=== PATIENT | female | born 1970 | race Caucasian/White ===

== ENCOUNTER 2024-12-28 12:57 | Outpatient (AMB) | payer BC, SELFPAY ==
--- NOTE | 2024-12-28 13:07 | A.PHYSOV_ITS ---
Vital Signs 12/28/24 13:08 Height 5 ft 9 in Weight 165 lb BMI 24.4 Intake Visit Reasons: KNEE + HIP PAIN Intake Note: Patient is q 54 year old female in office for bilateral hip and bilateral knee pain. No xrays done Allergies amoxicillin Allergy (Unknown, Verified 12/28/24 13:06) Unknown HPI Comments Details: History of Present Illness The patient is a 54-year-old female presenting with bilateral hip pain and groin pain. The pain radiates to both legs and is exacerbated by transitioning from sitting to standing positions. She reports difficulty sleeping on her sides due to the pain. The patient has a history of receiving bilateral greater trochanteric bursa injections, which provided excellent relief. However, the pain has returned and has been persistent for the past four to five months. She uses ibuprofen as needed and performs home exercises to manage the pain. The patient also reports low back pain, which she attributes to being on her feet frequently. She has not had any recent imaging studies, such as x-rays or MRIs, to evaluate her back pain. Pain Description - Onset: Long-standing pain exacerbated by sitting to standing transitions - Quality: Radiating pain to both legs - Location: Bilateral hips and groin - Exacerbating factors: Transitioning from sitting to standing, sleeping on sides - Relieving factors: Ibuprofen, home exercises Results [facility] Surgical History History of hernia repair (Unknown) Social History Alcohol intake: never Patient Tobacco Use Status: Current everyday Tobacco user Use of substances other than those prescribed or required for medical reasons: No Review of Systems Narrative Review of Systems - Musculoskeletal: Reports bilateral hip pain, groin pain, and low back pain Denies change in bowel bladder habits, denies fever or chills, denies uncontrolled depression or suicidal ideation Physical Exam Exam Exam: Physical Exam - Musculoskeletal: Palpation of hip area conducted, patient reported tenderness. Gait without antalgia. Lumbar extension was restricted. Dural tension signs were negative. She was able to perform heel walk and toe walk. Tenderness with palpation over greater trochanters bilaterally. Neurological examination was nonfocal. Patient demonstrated an upper motor neuron signs. Tenderness with palpation over SI sulci. SI provocative maneuvers were negative. Vital Signs: BMI result Body Mass Index 24.4 Office Procedures AMB Hip Injection AMB Hip Injection Procedure Details: Patient was placed in a lateral recumbent position with the right side up. Point of maximum tenderness over greater trochanter was located and marked. Skin was cleansed with alcohol. 1.5 in 22 gauge hypodermic needle was introduced percutaneously and advanced toward the greater trochanter. Once in place total volume of 5 cc containing 40 mg of triamcinolone and 2% lidocaine was injected after negative aspiration for blood and without resistance. The identical procedure was repeated on the opposite side. Patient tolerated procedure very well without complications.2 Hip (Bursa) Injection - : Bilateral All charges added?: Procedure code (CPT) selection complete Office Meds Kenalog 40 mg/mL suspension for injection Performing Provider: Lawson Bliss DO Performing Location: [facility] Administered by: Lawson Bliss DO on 12/28/24 13:29 Dose Route Admin Location Dispensed Lot Number Expiration Date 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 Business Mail Entry Clerk 160 mg intrabursal 8 mL [id number] Total Dispensed Waste 8 mL 0 % Assessment & Plan Assessment & Plan (1) Trochanteric bursitis of both hips: Code(s): M70.61 - Trochanteric bursitis, right hip; M70.62 - Trochanteric bursitis, left hip Category: Medical (2) Hip pain, bilateral: Code(s): M25.551 - Pain in right hip; M25.552 - Pain in left hip Category: Medical (3) Spinal stenosis, lumbar region with neurogenic claudication: Code(s): M48.062 - Spinal stenosis, lumbar region with neurogenic claudication Category: Medical Plan Pain Management - Affect: Patient expresses frustration and fatigue due to persistent pain - Analgesia: Uses ibuprofen as needed, previously had relief from bursa injections - Activities of Daily Living: Pain interferes with sleep and mobility, especially when transitioning from sitting to standing Plan Patient was informed and verbally consented to the use of an ambient scribe for clinic note documentation during this visit. 1. Bursitis The plan is to administer bilateral greater trochanteric bursa injections as previously done, which provided significant relief. The patient is advised to continue with home exercises and use ibuprofen as needed for pain management. 2. Low Back Pain The patient will undergo x-rays to evaluate the low back pain, with a potential follow-up MRI if necessary. She is advised to return for follow-up if pain persists or worsens after imaging results are reviewed. Discussion Notes I discussed with the patient the plan to repeat the bilateral greater trochanteric bursa injections, which had previously provided significant relief. We also talked about obtaining x-rays of the low back to further evaluate her pain, with the possibility of an MRI if the x-rays do not provide sufficient information. The patient was informed that she could return for follow-up if her pain persists or worsens. Patient Instructions - Continue home exercises and take ibuprofen as needed for pain relief. - Obtain x-rays of the low back at your convenience, no appointment necessary. - Return for follow-up if pain persists or worsens after imaging results are reviewed. Orders: Orders AMB Hip/Bursa Injection Today M70.61 - Trochanteric bursitis, right hip, M70.62 - Trochanteric bursitis, left hip XR hip BI w [id number] Today M25.551 - Pain in right hip, M25.552 - Pain in left hip, M70.61 - Trochanteric bursitis, right hip, M70.62 - Trochanteric bursitis, left hip XR lumbar spine 4V min Today M48.062 - Spinal stenosis, lumbar region with neurogenic claudication Coding Level of Care Code Est Pt Level 4 (15899) Complex EM visit Add On G2211 Diagnoses Trochanteric bursitis of both hips M70.61; M70.62 Hip pain, bilateral M25.551; M25.552 Spinal stenosis, lumbar region with neurogenic claudication M48.062 CPT Codes AMB Hip Injection - Hip/Bursa Injection - : Bilateral ([id number])
[2024-12-28 13:08] VITALS: BMI 24.4
--- OUTSIDE RECORDS SUMMARY | 2024-12-28 16:08 | XMS_ITS | Clinical Summary ---
Author Organization [facility] [address] [facility] lding Address [address] [place] [address] Phone Care Team Providers Care Contract Admin Name Role Phone Meghna Jc MD Primary Care Prov ider Allergies Active Allergy Reactions Criticality Noted Date Comments Amoxicillin Other 12/13/2021 Yeast infection Medications amLODIPine (NORVASC) 10 mg tablet Take 1 tablet (10 mg total) by mouth 1 (one) time each day. 90 tablet 1 5 Active carBAMazepine (TEGretol) 200 mg tablet Take 2 tablets (400 mg total) by mouth 2 (two) times a day. 360 tablet 1 5 Active carBAMazepine XR (TEGretol XR) 100 mg 12 hr tabletIndication s:Other epilepsy, not intractable, without status epilepticus (CMS/HCC V24, CMS/HCC V28) Take 1 tablet (100 mg total) by mouth 2 (two) times a day. 180 tablet 1 5 Active levothyroxine (SYNTHROID, LEVOTHROID) 200 mcg tablet Take 1 tablet (200 mcg total) by mouth 1 (one) time each day with breakfast. 90 tablet 1 5 Active losartan (COZAAR) 100 mg tablet Take 1 tablet (100 mg total) by mouth 1 (one) time each day. 90 each 1 5 04/01/19 26 Active albuterol HFA (Ventolin HFA) 90 mcg/actuation inhaler Inhale 2 puffs by mouth every 6 (six) hours if needed for wheezing. 1 each 11 5 10/14/19 26 Active LORazepam (ATIVAN) 0.5 mg tabletIndication s:Anxiety Take 1 tablet (0.5 mg total) by mouth every 8 (eight) hours if needed for anxiety. Max Daily Amount: 1.5 mg 30 tablet 5 Active albuterol HFA (PROAIR HFA ; PROVENTIL HFA ; VENTOLIN HFA) 90 mcg/actuation inhaler Inhale 2 puffs by mouth every 4 (four) hours if needed for wheezing (Cough). 25.5 g 5 Active tiotropium (SPIRIVA RESPIMAT) 2.5 mcg/actuation inhalation spray Inhale 2 puffs by mouth 1 (one) time each day. 1 each 5 11/29/19 Active medroxyPROGESTER one 150 mg/mL injection INJECT 1 MILLILITER INTO THE SHOULDER, THIGH, OR BUTTOCKS EVERY 3 MONTHS 1 mL 3 5 Active ergocalciferol (VITAMIN D-2) 1,250 mcg (50,000 unit) capsule Take 1 capsule (50,000 Units total) by mouth 1 (one) time per week. For 8 weeks then start daily vit d supplement 2000 units daily 8 capsule 5 11/30/19 25 Hospital, Clinic, or Other Facility Administered Medication Ordered Dose Route Frequency Start Date End Date Status medroxyPROGESTERone (DEPO-PROVERA) injection 150 mgIndications:Encounte r for surveillance of injectable contraceptive 150 mg IM Every 3 months 09/14/2024 09/09/2025 Active Active Problems Problem Noted Date Diagnosed Date IFG (impaired fasting glucose) 03/04/2023 Overview (11/16/2023): 5.5% Hypertension 01/05/2023 Anxiety 12/08/2022 Elevated LDL cholesterol level 07/02/2021 Vitamin D deficiency 07/02/2021 Primary osteoarthritis involving multiple joints 10/02/2015 Iliotibial band tendonitis 10/25/2014 Smoker 12/21/2013 Umbilical hernia 12/21/2013 Moderate dysplasia of cervix (CHARLETTE II) 05/22/2013 Overview (11/16/2023): History: PAP 05/09/2013: ASCUS with High Risk HPV DNA detected. PAP 03/14/2015: LSIL; High Risk HPV DNA detected. Colposcopy 04/15/2015: No dysplasia seen; the canal appears clear; a cervical polyp was removed. This showed: -MODERATE AND MILD SQUAMOUS DYSPLASIA (CHARLETTE-2 AND CHARLETTE- 1) INVOLVING POLYPOID FRAGMENT OF CERVICAL SQUAMOUS EPITHELIUM PAP and Colposcopy on 10/14/2015: PAP showed ASCUS with High Risk HPV DNA present. ECC: BENIGN ENDOCERVICAL GLANDULAR MUCOSA WITH FOCAL TUBAL METAPLASIA PAP 04/23/2016: ASCUS, cannot rule out HSIL; High Risk HPV DNA positive. Colposcopy 05/18/2016: No disease seen on the ectocervix. ECC: SQUAMOUS DYSPLASIA, FAVOR LOW GRADE SQUAMOUS INTRAEPITHELIAL LESION (CHARLETTE-1/MILD SQUAMOUS DYSPLASIA) INVOLVING SMALL DETACHED FRAGMENT OF SQUAMOUS MUCOSA. -BENIGN ENDOCERVICAL GLANDULAR EPITHELIUM ALSO PRESENT. Cone biopsy 06/17/2016: Moderate Dysplasia; margins are negative for dysplasia. ECC was negative for dysplasia PAP 10/23/2016: ASCUS; High Risk HPV DNA negative PAP 04/26/2017: Cytology negative; High Risk HPV DNA positive; not types 16/18/45 PAP 09/12/2018: Cytology negative; High Risk HPV DNA negative. Epilepsy (CMS/[facility] V24, CMS/[facility] V28) 06/09/2005 Overview (11/16/2023): Saw Pillo. ? Life long, last 1998 Hypothyroidism 06/09/2005 Nonspecific reaction to tube rculin skin test without active tuberculosis 06/09/2005 Overview (11/16/2023): IMO update Other specified health status 06/09/2005 Overview (11/16/2023): MILD PROTEIN S DEFICIENCY Found as father with sig. Disease, never with problem, heme cancelled appt. Encounters Date Type Department Care Team Description 12/07/2024 10:00 AM EDT Clinical Support Obstetrics and [facility]necology [facility] [address] [place] [phone] Encounter for surveillance of injectable contraceptive (Primary Dx) 10/13/2024 4:00 PM EDT Consult Pulmonology - [place] [address] [phone] Cordelia Lugo MD Chronic obstructive pulmonary disease, unspecified COPD type ([facility] V24, [facility] V28) (Primary Dx); SOB (shortness of breath); Smoker; TB lung, latent 10/13/2024 3:15 PM EDT Ancillary Procedure Pulmonology - [place] [address] [phone] SOB (shortness of breath) 10/09/2024 9:45 AM EDT Office Visit Walk-In Clinic - [address] [phone] Rudi Garcia PA Allergic contact dermatitis due to plants, except food (Primary Dx) 10/09/2024 Telephone Adult Medicine - [address] [phone] Meghna Watts MD 10/05/2024 9:36 AM EDT - 10/05/2024 11:59 PM EDT Hospital Encounter Radiology Department - [address] [phone] Screening mammogram for breast cancer Discharge Disposition: Home or Self Care 10/04/2024 Telephone Adult Medicine - [address] [phone] Isabela Abraham MA 10/03/2024 11:20 AM EDT Lab Draw Station - [address] Hypokalemia; Elevated LFTs; IFG (impaired fasting glucose); Vitamin D deficiency; Hypothyroidism, unspecified type 10/03/2024 9:45 AM EDT Office Visit Adult Medicine - [address] [phone] Myriam Tony PA Hypothyroidism, unspecified type (Primary Dx); Screening mammogram for breast cancer; Other epilepsy, not intractable, without status epilepticus ([facility] V24, [facility] V28); Hypokalemia; Vitamin D deficiency; Anxiety; IFG (impaired fasting glucose); Smoker; Hypertension, unspecified type; Nonintractable epilepsy without status epilepticus, unspecified epilepsy type ([facility] V24, [facility] V28); SOB (shortness of breath) from Last 3 Months Immunizations Immunization Administration Dates Next Due Pfizer SARS-CoV-2 COVID-19, mRNA, LNP-S, preservative free 03/30/2021,10/02/2020,09/03/2020 Tdap Tetanus diptheria acell ular pertussis (Boostrix; Adacel) 7yo and older 04/01/2015 Surgical History Surgery Date Site/Laterality Comments OTHER SURGICAL HISTORY PROCEDURE: VT ANES ESOPH THYRD LARX TRACH & LYMPH NCK BX THYRD TONSILLECTOMY ADENOIDECTOMY, BILATERAL MYRINGOTOMY AND TUBES PROCEDURE: VT TONSILLECTOMY & ADENOIDECTOMY <AGE 12 MASS EXCISION 07/19/2013 PROCEDURE: HISTORICAL EXCISION OF MASS; COMMENT: Excision of three vulvar abcesses performed by Dr. Rivera CERVICAL BIOPSY W/ LOOP ELECTRODE EXCISION 06/17/2016 PROCEDURE: HISTORICAL CONE BIOPSY; COMMENT: Performed by Dr. Rivera Medical History Medical History Date Comments Unspecified hypothyroidism 06/09/2005 DX:Un specified hypothyroidism Tuberculin test reaction 06/09/2005 DX:Tube rculin test reaction Other nonspecific findings o n examination of blood(790.99) 06/09/2005 DX:Other nonspecific find ings on examination of blood(790.99); COMMENT: Found as father with sig. Disease, never with problem, heme cancelled appt. Unspecified epilepsy without mention of intractable epilepsy 06/09/2005 DX:Unspecified epilepsy with out mention of intractable epilepsy Pap smear abnormality of cervix 05/22/2013 DX:Pap smear abnormality of cervix Smoking 12/21/2013 DX:Smoking Umbilical hernia without men tion of obstruction or gangrene 12/21/2013 DX:Umbilical hernia without mention of obstruction or gangrene Primary osteoarthritis invol ving multiple joints 10/02/2015 DX:Primary osteoarthritis in volving multiple joints Family History Medical History Relation Name Comments Other: protein S defic. Father Breast cancer Maternal Grandmother Other cancer Mother skin Heart attack Paternal Grandfather Alzheimer's disease Paternal Grandmother No Known Problems Sister 1 No Known Problems Sister 2 Relation Name Status Comments Father Alive Maternal Grandfather Maternal Grandmother Mother Alive Paternal Grandfather Paternal Grandmother Sister 1 Alive Sister 2 Alive Son 1 Tom Alive Son 2 Micheal Alive Social History Tobacco Use Types Packs/Day Years Used Date Smoking Tobacco: Every Day Cigarettes 1 13.9 Started: 02/15/2011 Smokeless Tobacco: Never Tobacco Cessation:Ready to Q uit: Not Asked; Counseling Given: Not Answered Alcohol Use Standard Drinks/Week Comments Yes 0 (1 standard drink = 0.6 oz pur e alcohol) Comments No Sex and Gender Information Value Date Recorded Sex Assigned at Not on file Legal Sex Female 11:37 AM EST Gender Identity Not on file Sexual Orientation Not on file Obstetrics History Para Term AB IAB SAB Ectopic Multiple Livin g Live Births 2 2 2 2 Date Outcome GA Total Labor Labor/2nd/3rd Weight Sex Type Anes PTL Camelia A1 A5 Name Clin Term Term Last Filed Vital Signs Vital Sign Reading Time Taken Comments Blood Pressure 132/81 12/07/2024 10:20 AM EDT Pulse 85 12/07/2024 10:20 AM EDT Temperature 23.6 C (74.5 F) 10/13/2024 3:11 PM EDT Respiratory Rate 18 09/14/2024 9:45 AM EDT Oxygen Saturation 98% 10/13/2024 3:11 PM EDT Inhaled Oxygen Concentration - - Weight 77.1 kg (170 lb) 12/07/2024 10:20 AM EDT Height 175.3 cm (5' 9 ) 10/13/2024 3:11 PM EDT Body Mass Index 25.1 10/13/2024 3:11 PM EDT Plan of Treatment Upcoming Encounters Date Type Department Care Team (Late st Contact Info) Description 12/29/2024 10:00 AM EST [facility] [address] [place] [phone] Katiuska Narayan CNM [address] [place] [address] 02/02/2025 9:30 AM EST Office Visit Adult Medicine - [address] [place] [phone] Myriam Tony PA [address] [place] [address] 03/01/2025 10:00 AM EST Clinical Support Obstetrics and Gynecology - [facility] [address] [facility] [place] [phone] Health Maintenance Due Date Last Done Comments Hepatitis B Vaccines (1 of 3 - 19+ 3-dose series) 1989 Pneumococcal Vaccine: 50+ Years (1 of 2 - PCV) 1989 Cervical Cancer Screening: Pap Smear 09/13/2019 09/12/2018, 09/12/2018, 09/12/2018, Additional history exists RSV Immunization Adult Patients (1 - Risk 50-74 years 1-dose series) 2020 Zoster Vaccines (1 of 2) 2020 HIV Screening 01/24/2022 Social Influencers of Health Screening 01/24/2022 Depression Screening 02/16/2024 COVID-19 Vaccine ( - season) 2024 03/30/2021, 10/02/2020, 09/03/2020 Influenza Vaccine (#1) 2024 DTaP,Tdap,and Td Vaccines (2 - Td or Tdap) 04/01/2025 04/01/2015 Hypertension/CHF/CAD Annual BMP Blood Test 10/03/2025 10/03/2024, 02/10/2024, 09/16/2023, Additional history exists Breast Cancer Screening 10/05/2025 10/06/19, 06/22/2023, 06/22/2023, Additional history exists Cholesterol Screening (Lipid Panel) 09/15/2028 09/16/2023, 09/16/2023 Colorectal Cancer Screening: Colonoscopy 12/07/2032 12/07/2022 Hepatitis C Screening Completed 10/08/2022 HIB Vaccines Aged Out No longer eligi ble based on patient's age to complete this topic HPV Vaccines Aged Out No longer eligi ble based on patient's age to complete this topic Hepatitis A Vaccines Aged Out No long er eligible based on patient's age to complete this topic IPV Vaccines Aged Out No longer eligi ble based on patient's age to complete this topic MMR Vaccines Aged Out No longer eligi ble based on patient's age to complete this topic Meningococcal ACWY Vaccine Aged Out N o longer eligible based on patient's age to complete this topic Meningococcal B Vaccine Aged Out No l onger eligible based on patient's age to complete this topic RSV Immunization Patients Under 20 months Aged Out No longer eligible based on patient's age to complete this topic Varicella Vaccines Aged Out No longer eligible based on patient's age to complete this topic Procedures Procedure Name Priority Date/Time Associated Diagnosis Comments PULMONARY FUNCTION TESTING Routine 10/13/2024 4:33 PM EDT SOB (shortness of breath) MG MAMMO DIGITAL SCREENING W PREM BILAT Routine 10/05/2024 10:03 AM EDT Screening mammogram for breast cancer THYROID STIMULATING HORMONE WITH REFLEX TO FREE T4 AND FREE T3 Routine 10/03/2024 11:18 AM EDT Hypothyroidism, unspecified type VITAMIN D 25 HYDROXY Routine 10/03/2024 11:18 AM EDT Vitamin D deficiency HEMOGLOBIN A1C Routine 10/03/2024 11:18 AM EDT IFG (impaired fasting glucose) COMPREHENSIVE METABOLIC PANEL Routine 10/03/2024 11:18 AM EDT Hypokalemia Elevated LFTs LIPID PANEL Routine 09/16/2023 HM COLONOSCOPY Routine 12/07/2022 HM HEPATITIS C SCREENING Routine 10/08/2022 PAP SMEAR Routine 09/12/2018 from Last 3 Months or Most Recently Relevant to Health Maintenance Results * Pulmonary function testing: Carbon Monoxide Diffusing Capacity, Nitrogen Wash Out, Spirometry with Bronchodilator (10/13/2024 4:33 PM EDT) Impressions Cordelia Lugo MD - 10/13/2024 4:33 PM EDT FEV1/FVC 74%. FEV1 2.33 at 73%. FVC 77%. No bronchodilator response, 6 % change. TLC 94%. RV 113%. RV/TLC 114%. DLCO 61% (57%) Shape of flow-volume loop showed neither intrathoracic nor extrathoracic obstruction. Mild to moderate obstruction w/ air trapping. No restriction. And mild decrease in diffusion. Findings consistent with mild to moderate obstructive lung disease. us Cordelia Lugo MD PFT ORDERABLES Final Result * MG Mammo Digital Screening w Prem bilat (10/05/2024 10:03 AM EDT) Anatomical Region Laterality Modality Breast Bilateral Mammography 10/05/2024 2:50 PM EDT Impressions 10/05/2024 2:54 PM EDT Benign. BI-RADS CATEGORY: 1 - NEGATIVE RECOMMENDATION: Screening bilateral mammogram is recommended in 1 year. Mammo Location: [facility], [address] [place] [address], [address], . -------- FINAL REPORT -------- Dictated By: Marcia Díaz Dictated Date: 10/05/2024 14:50 ET Assigned Physician: Marcia Díaz Reviewed and Electronically Signed By: Marcia Díaz Signed Date: 10/05/2024 14:54 ET Workstation ID: [id number] Transcribed By: Self Edit Transcribed Date: 10/05/2024 14:50 ET Narrative 10/05/2024 2:54 PM EDT CLINICAL: 54 years old, Female, routine annual exam. COMPARISON: Mammograms dating back to 05/22/2020 with most recent of 06/22/2023. TECHNIQUE: Bilateral MLO and CC views were obtained digitally with 3-D mammogram (digital breast tomosynthesis). Computer-aided detection was utilized in evaluation of this exam (CAD). FINDINGS: There is no evidence of suspicious mass or architectural distortion. No worrisome calcifications are evident. There has been no significant change from prior exam(s). BREAST DENSITY: B - There are scattered areas of fibroglandular density. Procedure Note Marcia Díaz MD - 10/05/2024 CLINICAL: 54 years old, Female, routine annual exam. COMPARISON: Mammograms dating back to 05/22/2020 with most recent of06/22/2023. TECHNIQUE: Bilateral MLO and CC views were obtained digitally with 3-Dmammogram (digital breast tomosynthesis). Computer-aided detection wasutilized in evaluation of this exam (CAD). FINDINGS: There is no evidence of suspicious mass or architectural distortion. Noworrisome calcifications are evident. There has been no significantchange from prior exam(s). BREAST DENSITY: B - There are scattered areas of fibroglandular density. IMPRESSION: Benign. BI-RADS CATEGORY: 1 - NEGATIVE RECOMMENDATION: Screening bilateral mammogram is recommended in 1 year. Mammo Location: [facility], [address] [place] [address], [address], . -------- FINAL REPORT -------- Dictated By: Marcia Díaz Dictated Date: 10/05/2024 14:50 ET Assigned Physician: Marcia Díaz Reviewed and Electronically Signed By: Marcia Díaz Signed Date: 10/05/2024 14:54 ET Workstation ID: [id number] Transcribed By: Self Edit Transcribed Date: 10/05/2024 14:50 ET Myriam BLUM IMG BI PROCEDURES Final Re sult * Thyroid stimulating hormone with reflex to free t4 and free t3 (10/03/2024 11:18 AM EDT) TSH 0.80 0.40 - 4.00 mcIU/mL LAB CHEMISTRY METHOD 10/03/2024 4:36 PM EDT [facility] Blood Venous blood specimen / Unknown Venipuncture / Unknown 10/03/2024 11:18 AM EDT 10/03/2024 11:18 AM EDT us Myriam BLUM LAB BLOOD ORDERABLES Final Result Performing Organization Address [facility]/ZIP Co de Phone Number [facility] [address] [place] [address], [place] [phone] * (ABNORMAL) Vitamin D 25 hydroxy (10/03/2024 11:18 AM EDT) Pathologist [facility] Vit D, 25-Hydroxy 15.9(L) 30.0 - 80.0 ng/mL LAB CHEMISTRY METHOD 10/03/2024 4:36 PM EDT [facility] Blood Venous blood specimen / Unknown Venipuncture / Unknown 10/03/2024 11:18 AM EDT 10/03/2024 11:18 AM EDT us Myriam BLUM LAB BLOOD ORDERABLES Final Result Performing Organization Address [facility] Co de Phone Number [facility] [address] [place] [address], [place] [phone] * Hemoglobin A1c (10/03/2024 11:18 AM EDT) [facility] Hemoglobin A1C 5.6 <6.5 % LAB CHEMISTRY METHOD 10/03/2024 9:18 PM EDT [facility] Mean Bld Glu Estim. 114 mg/dL LAB CHEMISTRY METHOD 10/03/2024 9:18 PM EDT [facility] Blood Venous blood specimen / Unknown Venipuncture / Unknown 10/03/2024 11:18 AM EDT 10/03/2024 11:18 AM EDT Myriam BLUM LAB BLOOD ORDERABLES Final Result Performing Organization Address [facility]/ZIP Co de Phone Number [facility] [address] [place] [address], [place] [phone] * (ABNORMAL) Comprehensive metabolic panel (10/03/2024 11:18 AM EDT) Sodium 138 133 - 145 mmol/L LAB CHEMISTRY METHOD 10/03/2024 3:[address] [facility] Potassium 4.4 3.5 - 5.5 mmol/L LAB CHEMISTRY METHOD 10/03/2024 3:[address] [facility] Chloride 108 96 - 110 mmol/L LAB CHEMISTRY METHOD 10/03/2024 3:[address] [facility] CO2 23 21 - 32 mmol/L LAB CHEMISTRY METHOD 10/03/2024 3:[address] [facility] Anion Gap 7 3 - 11 LAB CHEMISTRY METHOD 10/03/2024 3:[address] [facility] Glucose 95 70 - 100 mg/dL LAB CHEMISTRY METHOD 10/03/2024 3:[address] [facility] BUN 12 5 - 25 mg/dL LAB CHEMISTRY METHOD 10/03/2024 3:[address] [facility] Creatinine 0.56 0.50 - 1.10 mg/dL LAB CHEMISTRY METHOD 10/03/2024 3:[address] [facility] eGFR 109 >=60 mL/min/1. 73m2 LAB CHEMISTRY METHOD 10/03/2024 3:[address] [facility] Comment:Calculation based on the Chronic Kidney Disease Epidemiology Collaboration (CKD-EPI) equation refit without adjustment for race. BUN/Creatinine Ratio 21.4 LAB CHEMISTRY METHOD 10/03/2024 3:[address] [facility] Calcium 8.8 8.5 - 10.5 mg/dL LAB CHEMISTRY METHOD 10/03/2024 3:[address] [facility] AST (SGOT) 132(H) 10 - 42 unit/L LAB CHEMISTRY METHOD 10/03/2024 3:[address] [facility] ALT (SGPT) 130(H) 10 - 60 unit/L LAB CHEMISTRY METHOD 10/03/2024 3:57 PM EDT [facility] [place] [facility] Alkaline Phosphatase 170(H) 42 - 121 unit/L LAB CHEMISTRY METHOD 10/03/2024 3:57 PM EDT [facility] Total Protein 6.7 6.0 - 8.0 g/dL LAB CHEMISTRY METHOD 10/03/2024 3:57 PM EDT [facility] Albumin 3.7 3.2 - 5.0 g/dL LAB CHEMISTRY METHOD 10/03/2024 3:57 PM EDT [facility] Total Bilirubin 0.5 0.0 - 1.4 mg/dL LAB CHEMISTRY METHOD 10/03/2024 3:57 PM EDT [facility] Blood Venous blood specimen / Unknown Venipuncture / Unknown 10/03/2024 11:18 AM EDT 10/03/2024 11:18 AM EDT Myriam BLUM LAB BLOOD ORDERABLES Final Result [facility] [address] [place] [address], * (ABNORMAL) Lipid panel (09/16/2023) [facility] LDL/HDL Ratio 2 0 - 4 Triglycerides 84 0 - 150 mg/dL Cholesterol 235(A) 0 - 200 mg/dL HDL 120 >=40 mg/dL LDL Cholesterol 99 0 - 100 mg/dL Blood Venous blood specimen / Unknown Historical Provider LAB BLOOD ORDERABLES Hailey l Result * Colonoscopy (12/07/2022) Pathologist [facility] Colonoscopy no interpreta tion,abstr acted Anatomical Region Laterality Modality Other Historical Provider HEALTH MAINTENANCE Final Result * Hepatitis C Screening (10/08/2022) [facility] Hepatitis C Screening abstracted Historical Provider HEALTH MAINTENANCE Final Result * Pap smear (09/12/2018) 09/12/2018 Narrative HISTORICAL TESTING LAB RESULTING AGENCY - 09/21/2018 2:45 PM EDT [id number] THINPREP PAP, IMAGED: NEGATIVE FOR SQUAMOUS INTRAEPITHELIAL LESION AND MALIGNANCY . CLUE CELLS ARE PRESENT. MOSHE FAGAN , CT(ASCP) (CASE ELECTRONICALLY SIGNED 09 15 2018) SUPPLEMENTAL REPORT: RESULTS OF HPV: HIGH RISK: NEGATIVE (SEROTYPES 16,18,31,33,35,39,45,51,52,56,58,59,66,68) MAURICIO BRANTLEY M.D. , PATHOLOGIST (SUPPLEMENTAL REPORT SIGNED 09 21 2018) ADEQUACY: SATISFACTORY ENDOCERVICAL/TRANSFORMATION ZONE COMPONENT ABSENT. SOURCE: THINPREP PAP HPV IF ASCUS, CERVICAL, IMAGED CLINICAL INFORMATION: HPV IF DIAGNOSIS OF ASCUS. Z12.4, Z01.419, N87.1, HORMONES us Ronald Rivera MD LAB CYTOLOGY ORDERABLES Edited Result - Final HISTORICAL TESTING LAB RESULTING AGENCY from Last 3 Months or Most Recently Relevant to [place] [phone] [facility] Care Teams Contract Admin Relationship Specialty Start Date End Date Meghna Jc MD [address] [place] [address] LESLEY JANG [id number] PCP - General Internal Medicine 12/29/23
== END 2024-12-28 13:30 | disposition home or self-care (01) ==
LOC: HO.HPHYS 12:57
PROVIDERS: Visit Provider Physical Medicine & Rehabilitation
DX: M70.61 Trochanteric bursitis, right hip (principal); M70.62 Trochanteric bursitis, left hip; M25.551 Pain in right hip; M25.552 Pain in left hip; M48.062 Spinal stenosis, lumbar region with neurogenic claudication
CPT/HCPCS: 20610; 99214

== ENCOUNTER → 2024-12-28 12:57 | Outpatient (BNVA) | payer BC, SELFPAY | PROVIDERS: Visit Provider Physical Medicine & Rehabilitation | DX: M70.62 Trochanteric bursitis, left hip (principal); M70.61 Trochanteric bursitis, right hip | CPT/HCPCS: 20610; J2003; J3301 ==

== ENCOUNTER 2025-01-04 09:17 | Outpatient (REF) | payer BC, SELFPAY ==
--- NOTE | ~2025-01-04 | XR_ITS ---
EXAMINATION: XR LUMBOSACRAL SPINE WITH OBLIQUES CLINICAL INFORMATION: M48.062 - Spinal stenosis, lumbar region with neurogenic claudication COMPARISON: None available. TECHNIQUE: AP, both oblique, and lateral views of the lumbar spine. Lateral view of the lumbosacral junction. FINDINGS: Mild curvature of the lower lumbar spine to the right. Bone alignment is otherwise normal. No fracture or dislocation. Degenerative spondylosis and disc disease at L2-3 and degenerative spondylosis at L3-4. Lower lumbar spine bilateral facet arthritis, left greater than right. No pars defect appreciated. Paraspinal soft tissues unremarkable. There may be mild constipation. XR/XR lumbar spine 4V min IMPRESSION: Mild scoliosis and degenerative changes. Electronically signed by: Mica Ashby MD 01/04/2025 11:44 AM JORY
--- NOTE | ~2025-01-04 | XR_ITS ---
EXAMINATION: XR BILATERAL HIPS WITH AP PELVIS CLINICAL INFORMATION: M70.61 - Trochanteric bursitis, right hip COMPARISON: None available. TECHNIQUE: AP view of the pelvis and 2 views of each hip were obtained. FINDINGS: Hip joint spaces are maintained. Alignment is anatomic. No acute fracture or dislocation. Sacroiliac joints and pubic symphysis are intact. Mild bilateral SI joint arthritis 6 mm calcification projected over the symphysis pubis, nonspecific. Small calcifications inferior to the left ischial tuberosity. Small chronic calcification lateral to the left greater trochanter. XR/XR hip BI w PEL1V IMPRESSION: No acute osseous findings. Soft tissue calcifications, detailed above. Electronically signed by: Marco Cavanaugh MD 01/04/2025 04:40 PM EST
--- OUTSIDE RECORDS SUMMARY | 2025-01-04 12:04 | XMS_ITS ---
[facility] Name [facility] Organization Unknown Care Team Organization Name Specialty Phone Email Start Date End Da te [facility] DIMITRI MUNOZ Primary Care 12/23/2021 10/04/2023
== END 2025-01-04 09:18 | disposition home or self-care (01) ==
LOC: HO.XRAY 09:17
PROVIDERS: PCP Internal Medicine; Visit Provider Physical Medicine & Rehabilitation
DX: M70.61 Trochanteric bursitis, right hip (principal); M70.62 Trochanteric bursitis, left hip; M48.062 Spinal stenosis, lumbar region with neurogenic claudication; M25.551 Pain in right hip; M25.552 Pain in left hip
CPT/HCPCS: 72110; 73521

== ENCOUNTER → 2025-01-04 09:24 | Outpatient (BNV) | payer BC, SELFPAY | PROVIDERS: PCP Internal Medicine; Visit Provider Radiology Diagnostic Radiology | DX: M48.062 Spinal stenosis, lumbar region with neurogenic claudication (principal); M51.369 Other intervertebral disc degeneration, lumbar region without mention of lumbar back pain or lower extremity pain; M41.86 Other forms of scoliosis, lumbar region; M70.61 Trochanteric bursitis, right hip; M61.451 Other calcification of muscle, right thigh; M61.452 Other calcification of muscle, left thigh | CPT/HCPCS: 72110; 73521 ==